=== PATIENT | female | born 1980 | race Caucasian/White ===

== ENCOUNTER → 2021-12-28 | Outpatient (CLI) | payer MEDICAID | LOC: MC.RAD 11-16 09:00 | DX: Z12.31 Encounter for screening mammogram for malignant neoplasm of breast (principal) ==

== ENCOUNTER 2024-06-06 01:17 | Emergency (ER) | payer SELFPAY ==
[~2024-06-06] VITALS: Ht 162.6 cm; Wt 81.8 kg
[2024-06-06 01:29] VITALS: TEMP 98.4
[2024-06-06 01:39] LABS: COLLECTION METHOD CLEAN CATCH
[2024-06-06 01:54] LABS: BASO % 0.2 % (0.0-2.0); EOS # 0.1 K/mm3 (0.0-0.7); EOS % 1.1 % (0.0-4.0); GRAN # 9.5 K/mm3 (1.4-6.5); GRAN % 75.4 % (42.2-75.2); HEMATOCRIT 38.8 % (37.0-47.0); HEMOGLOBIN 13.1 g/dl (12.5-16.0); LYMPH # 1.5 K/mm3 (1.2-3.4); LYMPH % 12.2 % (20.0-51.0); MEAN CELL VOLUME 87 fl (80.0-100.0); MEAN CORPUSCULAR HEMOGLOBIN 29 pg (27-31); MEAN CORPUSCULAR HGB CONC 34 g/dl (33.0-37.0); MEAN PLATELET VOLUME 10.8 fl (7.4-10.4); MONO # 1.3 K/mm3 (0.1-0.6); MONO % 10.5 % (1.7-9.3); PLATELET COUNT 217 K/mm3 (130-400); RED BLOOD COUNT 4.48 M/mm3 (4.10-5.30); REDCELL DISTRIBUTION WIDTH-CV 13.6 % (11.5-14.5)
[2024-06-06 02:02] LABS: PH 5.5 (5.0-8.5); URINE APPEARANCE CLEAR (CLEAR/HAZY); URINE COLOR YELLOW (YELLOW); URINE GLUCOSE NEGATIVE (NEGATIVE); URINE KETONE TRACE (NEGATIVE); URINE PROTEIN(semi-quant) 2+ (NEGATIVE)
[2024-06-06 02:03] LABS: URINE BLOOD 1+ (NEGATIVE); URINE NITRATE NEGATIVE (NEGATIVE)
[2024-06-06 02:13] LABS: ALBUMIN 2.9 g/dL (3.5-5.0); BILIRUBIN,TOTAL 0.2 mg/dL (0.2-1.2); CALCIUM 9.4 mg/dL (8.4-10.2); CREATININE, serum 0.94 mg/dL (0.57-1.11); POTASSIUM 3.6 mEq/L (3.5-4.5); TOTAL PROTEIN 7.1 g/dl (6.2-8.1)
[2024-06-06] MEDS ORDERED: cefTRIAXone 1 G in Water For Injection,Sterile 10 ML IV ONE (02:15)
[2024-06-06] MEDS ORDERED: NS 1,000 ML IV ONE (02:15)
[2024-06-06] MEDS ORDERED: Ketorolac 30 MG/ML VIAL IV ONE (02:15)
[2024-06-06] MEDS ORDERED: Iohexol 300 - 100 ML VIAL IV ONE (02:31)
[2024-06-06] MEDS ORDERED: NS 50 ML IV ONE (02:37)
[2024-06-06] MEDS ORDERED: CEPHALEXIN500 M1 PO (04:12)
[2024-06-06 04:27] VITALS: BP 119/71; PULSE 99
== END 2024-06-06 04:27 | disposition home or self-care (01) ==
LOC: COL.ER 01:17
PROVIDERS: Family Medicine
DX: N10 Acute pyelonephritis (principal); F17.200 Nicotine dependence, unspecified, uncomplicated
CPT/HCPCS: J0696; J1885; J7030; Q9967